=== PATIENT | female | born 1950 | race Caucasian/White ===

== ENCOUNTER 2022-02-22 12:47 | Outpatient (CLI) | payer MEDICARE, BC, SELFPAY ==
--- NOTE | 2022-02-22 13:00 | CRLHL7_ITS ---
For Patients: As a result of the Century Cures Act, medical imaging exams and procedure reports are released immediately into your electronic medical record. You may view this report before your referring provider. If you have questions, please contact your health care provider. DXA BONE MINERAL DENSITY STUDY Current height (in):61 Weight (lb): 205 Menopause age: 44 Ethnicity: White 1. Have you had a previous hip or vertebral fracture? No. 2. Have you had any fractures during your adult life which did not result from significant trauma (e.g., auto accident)? No. 3. Did either of your parents have a hip fracture? No. 4. Do you smoke? No. 5. Have you ever taken Glucocorticoids? No. 6. Do you have rheumatoid arthritis? No. 7. Do you have secondary osteoporosis? No. 8. Do you drink 3 or more alcoholic drinks per day? No. 9. Are you being treated for osteoporosis? No. 10. Have you ever taken any of the following medications: Actonel, Evista, Fosamax, Miacalcin, Reclast, Boniva, Forteo, HRT (i.e. estrogen/hormone therapy), Protelos, Prolia, Vitamin D, Calcium, other ??? please specify. ANSWER: Yes, HRT, vitamin D, Levothyroxine, and Pravastat 11. Do you have any of the following medical conditions: Anorexia or bulimia, asthma or emphysema, end stage renal disease, hyperparathyroidism, any seizure disorders, cancer, inflammatory bowel diseases, hysterectomy, other ??? please specify. ANSWER: Yes, hysterectomy 12. What was your maximum height (inches)? 62.5. 13. Do you perform weight bearing exercise regularly? No 14. Do you regularly consume dairy products? Yes. 15. Do you drink caffeinated beverages? Yes. If female: 16. At what age did your period start? 12 17. Are you premenopausal? No. 18. How many full term pregnancies have you had? 2 19. Have you ever missed your period for more than 6 months in a row (not including or menopause)? No. TECHNIQUE: Bone mineral density study was performed using the [employer]. FINDINGS: The results of the study expressed as bone mineral density (BMD) are as follows: Lumbar spine L1 to L2: BMD: 1.296 g/cm2. T-score: 2.9. Z-score: 5.0 Neck Left: BMD: 0.768 g/cm2. T-score: -0.7. Z-score: 1.2 Right: BMD: 0.888 g/cm2. T-score: 0.4. Z-score: 2.3 Total Left: BMD: 0.973 g/cm2. T-score: 0.3. Z-score: 1.9 Right: BMD: 0.972 g/cm2. T-score: 0.2. Z-score: 1.9 IMPRESSION: Normal bone density. Rosa Rodríguez M.D. Body/Breast Radiologist [email or web address] ESTHER/ranjan woodruff/Dictated by: Rosa Rodírguez MD @ 02/22/2022 1:28:00 PM (Electronically Signed)
== END 2022-02-22 12:48 | disposition home or self-care (01) ==
LOC: RAD 12:48
PROVIDERS: PCP Family Medicine; Visit Provider Family Medicine
DX: Z78.0 Asymptomatic menopausal state (principal)
CPT/HCPCS: 77080

== ENCOUNTER 2023-01-16 08:44 | Outpatient (CLI) | payer MEDICARE, BC, SELFPAY | END 2023-01-16 08:45 | disposition home or self-care (01) | LOC: NFLDREF 16:41 | PROVIDERS: PCP Family Medicine; Referring Provider Family Medicine; Visit Provider Family Medicine | DX: E03.9 Hypothyroidism, unspecified (principal); E78.5 Hyperlipidemia, unspecified; E55.9 Vitamin D deficiency, unspecified | CPT/HCPCS: 80053; 80061; 82306; 84443 ==

== ENCOUNTER 2023-04-01 10:30 | Outpatient (RCR) | payer MEDICARE, BC, SELFPAY ==
--- NOTE | 2023-02-19 07:59 | PT.OPEX ---
PT [place] Outpatient Eval PT [facility] Outpatient Eval Start: 02/18/23 13:35 Freq: Status: Active Protocol: Document 02/18/23 13:36 AMS (Rec: 02/18/23 17:40 AMS [id number]) E-signed By Suzanne Garrett PT Physical Therapy Outpatient Evaluation Insurance Information Recert Due Date 05/14/23 Insurance Name Medicare B,Blue Cross/Blue Shield Medical Diagnosis Chronic lumbar pain Lumbar osteoarthritis Treating Diagnosis Low back pain Muscle weakness Abnormal posture Stiffness bilateral hips Referring MD Amy Sol Subjective Subjective Patient presents to physical therapy (10 minutes late) with primary concern of chronic low back pain. This has been present for years, but recently worsened in October when she started walking again after winter. Localizes pain to midline low back; denies any hip pain, radicular symptoms, or numbness/tingling . Her symptoms prevent her from walking more than one mile. Previously, she was walking 2 miles per day 5-7 days per week, but she stopped due to winter and was never able to get back to it due to back pain. Now, she walks 1 mile 2-3 x/week before her back starts to bother her. Her back does not wake her up at night. Also states she has difficulty with her posture and has increased difficulty with standing up straight. Her anterior thighs feel tight. Functional limitations/ aggravating factors include walking longer than 1 mile and standing longer than 10 minutes. Easing factors include stretching at chiropractor every 2 weeks and massage therapist 1x/month. Pt denies bowel or bladder changes, change in symptoms with coughing or sneezing, unrelenting night pain, history of cancer, or unexplained weight loss. Denies falls in the last year. Goals are walking and standing for longer durations without pain as well as standing up straighter. PMH significant for bilateral knee replacements in 2017 and 2018 , osteoarthritis, and respiratory problems. Pain Comments 9/10 at rest and on average, may sometimes be less (not rated specifically) Date of Last Physician Visit 01/24/23 Current Work Status Retired Preferred Name Gauri Precautions Treatment Precautions/Contraindications Hypothyroidism, hyperlipidemia , bilateral knee replacements Therapy Limitations/Systems Review Not Limited Objective Other/Pertinent Objective Posture Assessment: Mildly flexed forward posture, rounded shoulders, forward head Gait Assessment: Decreased arm swing bilaterally, flexed forward posture, no assistive device, decreased trunk rotation BALANCE Single leg stance: 2 seconds bilaterally FUNCTIONAL MOBILITY Double leg squat: Unable to squat past 90 deg due to B knee pain, pull in low back Step down/SL squat: Not tested LUMBAR ROM Flexion: Full, to ankles, pain -free Extension: 75%, pain-free Right Sidebending: WNL, pain- free Left Sidebending: WNL, pain- free Right rotation: WNL, no pain Left rotation: WNL, no pain REPEATED MOVEMENTS: Lumbar flexion: Mild improvement in symptoms Lumbar extension: No change in symptoms THORACIC ROM Full and pain-free HIP ROM (R/L) Flexion: 100/100 Extension: 10/10 Internal Rotation: 10/10 External Rotation: 45/45 LE MMT Hip flexion: R 5/5 L 5/5 Hip Extension: R 3+/5 L 3+/5 Hip abduction: R 4+/5 L 4+/5 Knee extension: R 5/5 L 5/5 Knee Flexion: R 5/5 L 5/5 Dorsiflexion/heel walk: R 5/5 L 5/5 Abdominal Strength: able to perform curl up in supine, pull in low back JOINT MOBILITY/PALPATION Mild stiffness noted with posterior-anterior testing of lumbar spine at L3-L5, no TTP noted over gluteals or lumbar paraspinals, mild TTP over bilateral lateral hips SPECIAL TESTS -Straight leg raise: - -Quadrant test: - SI/HIP tests -LORETTA: - -FADIR: + for right hip pain -Scour - -Colleen's: - -Anna's: + bilateral -Amilcar: + bilateral TX: Patient was educated on anatomy, physiology as it relates to current condition and HEP with use of handout/ [employer]. Patient verbalizes understanding and agrees with POC/goals -Soreness rules with goal of symptoms returning to baseline within 24 hours and that evening -Slowly increasing walking distance based on above guidelines by small increments as symptoms tolerate Pt educated in the following exercises to improve range of motion, tissue tolerance, and/ or strength with verbal/ tactile cues as necessary: Access Code: [email or web address] URL: [email or web address] Date: 02/18/2023 Prepared by: Suzanne Garrett Exercises - Supine Lower Trunk Rotation - 1 x daily - 7 x weekly - 3 sets - 15 reps - Supine Bridge - 1 x daily - 4 x weekly - 3 sets - 8-10 reps - Supine Quadriceps Stretch with Strap on Table - 1 x daily - 7 x weekly - 3 sets - 30-60 seconds hold Functional Test Performed & Score Modified Oswestry: patient filling out at home Assessment Assessment/Impression Pt is a 73 -year-old female who presents with concerns of chronic low back pain and high severity and moderate irritability. Signs and symptoms are likely indicating / consistent with mechanical low back pain. Pt's intolerance to longer periods of lumbar extension and her age may indicate facet-related symptoms. Denies radiating symptoms or N/T. On exam, patient also demonstrates notable objective findings including limited lumbar extension ROM, impaired balance bilaterally, positive Anna's and Amilcar tests, otherwise normal hip exam, and decreased hip/trunk strength, leading to difficulties with walking for long periods and standing for longer than 10 minutes. Discussed soreness guidelines with graded return to walking longer distances and standing. Patient is appropriate for skilled physical therapy services to address the above deficits. Pt was agreeable with plan of care and goals established. Primary Functional Limitations walking for long periods and standing for longer than 10 minutes Plan of Care Rehabilitation Potential Good Physical Therapy Goals In 2 session: Pt will demonstrate consistent HEP compliance to ensure progress in reaching established goals during course of care. In 8-10 sessions: Pt will be able to walk up to or >2 miles with <2/10 pain. Pt will stand for up to 1 hour with <2/10 pain. Patient will report pain levels < 2/10 with all activity in order to improve functional mobility at home, work, and during functional leisure activities. Coordination/Communication With Referral Source Treatment Plan/Direct Interventions Electrical Stimulation,Joint Mobilization,Manual Therapy, Neuromuscular Re-ed,Self-Care/ Home Management,Therapeutic Activities,Therapeutic Exercises Frequency/Duration 1x/week for 8-10 weeks Patient Will Be Discharged From Therapy Completion of LTG(s), Independent w/HEP, Independently Progressing Evaluation Billing Untimed Code Treatment Minutes 25 Complexity Moderate Certification Information Initial Certification Date 02/18/23 Ending Certification Date 05/14/23 Provider Signature Shows Agreement With POC & Medical Necessity Physician Signature & Date Requested Please Sign/Date Here Physician Comment/Change : Physician NPI Number #
== END 2023-05-13 09:02 | disposition home or self-care (01) ==
PROVIDERS: PCP Family Medicine; Visit Provider Family Medicine
DX: M54.50 Low back pain, unspecified (principal); G89.29 Other chronic pain; M19.09 Primary osteoarthritis, other specified site; E66.9 Obesity, unspecified; M62.81 Muscle weakness (generalized); R29.3 Abnormal posture; M25.652 Stiffness of left hip, not elsewhere classified; M25.651 Stiffness of right hip, not elsewhere classified; Z51.89 Encounter for other specified aftercare
CPT/HCPCS: 97110; 97140; 97162

== ENCOUNTER 2024-02-19 08:28 | Outpatient (CLI) | payer MEDICARE, BC, SELFPAY | END 2024-02-19 08:29 | disposition home or self-care (01) | LOC: NFLDREF 02-21 13:14 | PROVIDERS: PCP Family Medicine; Referring Provider Family Medicine; Visit Provider Family Medicine | DX: E03.9 Hypothyroidism, unspecified (principal); E55.9 Vitamin D deficiency, unspecified; R03.0 Elevated blood-pressure reading, without diagnosis of hypertension; E78.5 Hyperlipidemia, unspecified | CPT/HCPCS: 80053; 80061; 82306; 84443 ==

== ENCOUNTER 2024-05-01 11:15 | Outpatient (RCR) | payer MEDICARE, BC, SELFPAY ==
--- NOTE | 2024-03-02 10:13 | PT.OPE ---
PT [place] Outpatient Eval PT [facility] Outpatient Eval Start: 02/28/24 15:16 Freq: Status: Active Protocol: Document 02/28/24 15:17 JENNIFER (Rec: 02/28/24 15:22 JENNIFER [id number]) E-signed By FRENCH SilvaT, MS Physical Therapy Outpatient Evaluation Insurance Information Recert Due Date 05/28/24 Insurance Name Medicare B Medical Diagnosis Benign paroxysmal vertigo, unspecified ear Treating Diagnosis B CS pain, HAs, decreased B CS flexibility and ROM, cervicogenic dizziness, imbalance, gait dysfunction, and deep CS flexor and periscap weakness Subjective Preferred Name Gauri Wilson Pt is a 74 y.o. female who presents to PT with c/o dizziness and lightheadedness sensations since getting out of bed on 01/28/24. Experienced high levels of room spinning dizziness with rolling to the L, supine<>sit transfers and looking up<>down but these sxs have resolved since earlier this week. Has performed home Maxime maneuver 2-3x per day since seeing Dr. Sol with no dizziness during self treatment this week. Hopes to ensure her BPPV is resolved and learn what causes it and how to prevent future recurrence. Continues to feel lightheaded and off balance with positional changes. Also notes long chronic hx of neck pain and HAs, especially over the past 12 years after her began experiencing dementia sxs. Elevated stress and sadness this year after her earlier this year. Two previous incidents of BPPV with a severe case in 2003. PSH B TKA surgeries. PMH includes chronic LS pain, and CS and LS OA. AGGR factors: quick head movements, turning her head, supine<>sit transfers, looking up<>down, stress, extended sitting and computer use. ALLEV factors: rest, neck stretching, slow movements. Pt hopes to eliminate dizziness and decrease neck pain to improve tolerance and safety with all daily activities. Pain Comments CS 2-7/10 Dizziness none - mild. High levels at worst. Current Work Status Retired Precautions Therapy Limitations/Systems Review Not Limited Objective Functional Test Performed & Score DHI: 30% Assessment Assessment/Impression All BPPV testing negative today with COSTELLO and mild dizziness sxs reproduced with SO release and palpation of SO and upper CS musculature. Significant B upper CS tightness and hypertonicity appears to be leading signs and symptoms consistent with cervicogenic dizziness. High stress levels also contributing to sxs. Pt also displays sensory disorganization with imbalance on compliant surfaces without vision. Excellent response to MT, periscap strengthening and stretching exercises with decreased neck pain, improved CS AROM and dizziness sxs following today?s session. She will benefit greatly from continued skilled PT intervention to address these limitations. Primary Functional Limitations Quick head movements, turning her head, supine<>sit transfers, looking up<>down, stress, extended sitting and computer use Plan of Care Rehabilitation Potential Excellent Physical Therapy Goals Short-term therapy goals to be completed in 4 weeks: 1. Pt will display improved B CS rot AROM >64 deg without neck pain to check blind spots while driving. 2. Pt will report >50% improvement in HAs for >3 consecutive days to improve ability to concentrate with daily activities. Long-term therapy goals to be completed in 10 weeks: 1. Pt will be I and compliant with her HEP for group home sx management 2. Pt will report continued resolution of dizziness with all head positions, household cleaning and daily activities for >6 consecutive days to improve tolerance and safety with daily activities. 3. Pt will display improved Romberg balance on foam surface with eyes closed >5 sec with minimal sway to decrease falls risk. 4. Pt will report >20 point improvement in dizziness handicap inventory questionnaire to significantly improve tolerance to functional activities. Coordination/Communication With Referral Source Treatment Plan/Direct Interventions Canalith Repositioning,Joint Mobilization,Manual Therapy, Neuromuscular Re-ed, Therapeutic Exercises Frequency/Duration 1x per week for as needed for 6-10 visits Patient Will Be Discharged From Therapy Completion of LTG(s),Skills Plateau,Independent w/HEP, Independently Progressing Evaluation Billing Untimed Code Treatment Minutes 28 Complexity Moderate Certification Information Initial Certification Date 02/28/24 Ending Certification Date 05/28/24 Provider Signature Required Yes Provider Signature Shows Agreement With POC & Medical Necessity Physician NPI Number Write NPI# Here Physician Comment/Change : Physician Signature & Date Requested Please Sign/Date Here
== END 2024-08-29 23:59 | disposition home or self-care (01) ==
PROVIDERS: PCP Family Medicine; Visit Provider Family Medicine
DX: H81.10 Benign paroxysmal vertigo, unspecified ear (principal); R26.9 Unspecified abnormalities of gait and mobility; R26.81 Unsteadiness on feet; R29.898 Other symptoms and signs involving the musculoskeletal system; Z51.89 Encounter for other specified aftercare
CPT/HCPCS: 97110; 97140; 97162

== ENCOUNTER 2024-07-21 11:28 | Outpatient (CLI) | payer MEDICARE, BC, SELFPAY | END 2024-07-21 11:29 | disposition home or self-care (01) | PROVIDERS: PCP Family Medicine; Visit Provider Family Medicine | DX: E03.9 Hypothyroidism, unspecified (principal); I10 Essential (primary) hypertension; R53.83 Other fatigue; Z13.21 Encounter for screening for nutritional disorder | CPT/HCPCS: 80053; 82607; 84443 ==

== ENCOUNTER 2024-10-21 14:10 | Emergency (ER) | payer MEDICARE, BC, SELFPAY ==
[2024-10-21] VITALS (18 sets, daily range): BP systolic 179–204; BP diastolic 84–106; PULSE 55–75; RESP 7–30; TEMP 37.3; O2SAT 96–97; BMI 41.8
--- OUTSIDE RECORDS SUMMARY | 2024-10-21 14:22 | XMS_ITS | Clinical Summary ---
Author Organization [facility] Address [address] [place] [id number] Care Team Providers Care Sales Promoter Name Role Phone Amy Sol MD Primary Care Provider + Allergies Active Allergy Reactions Criticality Noted Date Comments Amoxicillin Rash Unknown 11/15/2004 Clindamycin Rash 01/15/2018 Lisinopril Cough 01/15/2018 Penicillins Rash 01/15/2018 Sulfamethoxazole-Trimethoprim Fever 2017 Medications levothyroxine (SYNTHROID) 88 mcg tablet Take 88 mcg by mouth once daily. Active aspirin 81 mg tablet Take 81 mg by mouth once daily with a meal. Active ASCORBATE CALCIUM (VITAMIN C ORAL) Take by mouth. Active VITAMIN B COMPLEX ORAL Take by mouth. Active MULTIVITAMINS WITH FLUORIDE (MULTI-VITAMIN ORAL) Take by mouth. Active pravastatin (PRAVACHOL) 20 mg tablet Take 1 tablet by mouth at bedtime. 0 05/08/2018 Active montelukast (SINGULAIR) 10 mg tablet Take 1 tablet by mouth at bedtime. 0 05/08/2018 Active oxybutynin (DITROPAN) 5 mg tablet Take 5 mg by mouth three times daily. Not taking 0 05/08/2018 Active Active Problems Problem Noted Date Diagnosed Date Personal history of colonic polyps 03/25/2013 Overview (05/24/2023): Colonoscopy 03/2013 normal repeat in 5 years Colonoscopy 05/2023 TA, repeat in 5 years Family History Medical History Relation Name Comments Cancer-colon Maternal Aunt dx age late 70 's Cancer-colon Maternal Uncle dx age late 7 0's Cancer-colon Mother dx age 71 and a gain 91 Cancer-breast Other mat first cous in 40's yrs old Cancer-colon Paternal Uncle dx age late 5 0's Cancer No Family History Cancer-ovarian No Family History Cancer-prostate No Family History Relation Name Status Comments Maternal Aunt Maternal Uncle Mother Other Paternal Uncle Social History Tobacco Use Types Packs/Day Years Used Date Smoking Tobacco: Former Smokeless Tobacco: Never Tobacco Cessation:Counseling Given: Yes Comments:very little as a teen Alcohol Use Standard Drinks/Week Comments Not Asked 0 (1 standard drink = 0.6 oz pur e alcohol) Comments No Sex and Gender Information Value Date Recorded Sex Assigned at Not on file Legal Sex Female 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 BIOLOGIST Gender Identity Not on file Sexual Orientation Not on file Obstetrics History Last Filed Vital Signs Vital Sign Reading Time Taken Comments Blood Pressure 140/70 05/21/2023 9:32 AM ANIMAL BIOLOGIST Pulse 58 05/21/2023 9:32 AM ANIMAL BIOLOGIST Temperature 37.3 C (99.2 F) 09/17/2012 10:37 AM CDT Respiratory Rate 16 05/21/2023 9:32 AM ANIMAL BIOLOGIST Oxygen Saturation 97% 05/21/2023 9:32 AM ANIMAL BIOLOGIST Inhaled Oxygen Concentration - - Weight 81.3 kg (179 lb 3.2 oz) 09/17/2012 10:17 AM CDT Height 157.5 cm (5' 2) 09/17/2012 10:17 AM CDT Body Mass Index 32.78 09/17/2012 10:17 AM CDT Plan of Treatment Health Maintenance Due Date Last Done Comments Tdap 02/09/1960 Depression screening for age 12+ 1961 BMI (ht and wt on same day) for age 18+ 1967 Hepatitis C screening for ag e 18-79 1967 Tetanus booster 1969 Lipids for age 45-75 1994 Pneumococcal series for age 50+ (1 of 1 - PCV) 1999 Zoster (shingles) series for age 50+ (1 of 2) 1999 DEXA/DXA scan for age 65+ 2014 Medicare Wellness for age 65+ 2014 RSV vaccine for adults or (1 - 1-dose 75+ series) 02/09/2024 COVID-19 vaccine series ( season) 2024 08/15/2021, 09/27/2020, 09/06/2020 Influenza Vaccine (Season Ended) 2025 Colonoscopy through age 75 05/21/202805/21, 05/21/2023, 05/09/2018, Additional history exists Procedures Procedure Name Priority Date/Time Associated Diagnosis Comments COLONOSCOPY 05/21/2023 8:36 AM ANIMAL BIOLOGIST from Last 3 Months or Most Recently Relevant to Health Maintenance Results * COLONOSCOPY (05/21/2023 8:36 AM ANIMAL BIOLOGIST) 05/21/2023 8:36 AM ANIMAL BIOLOGIST Narrative Transcriptions Emmanuel Martinez MD - 05/21/2023 9:25 AM CST Patient Name: Anna Mansfield Procedure Date: 05/21/2023 Gender: Female Date of : 1950 Admit Type: Outpatient Procedure: Colonoscopy Proceduralist: Emmanuel Martinez MD , Yun Armstrong RN(Nurse), Belem Lovell (Nurse) Indications/Pre-Op Diagnosis: Screening in patient at increased risk:Family history of 1st-degree relative withcolorectal cancer before age 60 years, Lastcolonoscopy: May 2018 Medications: Fentanyl 150 micrograms IV, Midazolam 4 mgIV, The level of sedation administered wasmoderate Procedure Description: The patient had risks, benefits and alternatives explained to andgave informed consent. The patient had a stable cardiopulmonary status and judged an adequate candidate for conscious sedation. The endoscope [id number]-H190L [id number] was passed through the anus andadvanced to the cecum, identified by appendiceal orifice and ileocecal valve.The colonoscopy was performed without difficulty. The patient toleratedthe procedure well. The quality of the bowel preparation was good. The ileocecal valve, appendiceal orifice, and rectum were photographed. Complications: No immediate complications. Estimated Blood Loss & Specimen: Estimated blood loss: none. Specimen collected - Yes and sent to Laboratory Findings: The perianal and digital rectal examinations were normal. A 3 mm polyp was found in the descending colon. The polyp wassessile. The polyp was removed with a cold snare. Resection and retrieval were complete. There was evidence of a prior end-to-end ileo-colonic anastomosis inthe transverse colon. This was patent and was characterized by healthy appearing mucosa. A benign-appearing, intrinsic moderate stenosis was found in thesigmoid colon. The exam was otherwise without abnormality. Impressions/Post-Op Diagnosis: - One 3 mm polyp in the descending colon, removed with a cold snare. Resected and retrieved. - Patent end-to-end ileo-colonic anastomosis, characterized byhealthy appearing mucosa. - Stricture in the sigmoid colon. - The examination was otherwise normal. Recommendation: - Patient has a contact number available for emergencies. The signsand symptoms of potential delayed complications were discussed with the patient. Return to normal activities tomorrow. Written discharge instructions were provided to the patient. - Resume previous diet. - Continue present medications. - Repeat colonoscopy in 5 years. Moderate Sedation: A time out was performed before the procedure. Moderate (conscious) sedation was administered by the endoscopy nurse and supervised bythe endoscopist. The following parameters were monitored: oxygensaturation, heart rate, blood pressure, EKG, CO2, respiratory rate, adequacy of pulmonary ventilation and reponse to care. Please refer to the patient's medical record flowsheets and nursing notes for moderate sedation details. Total physician intraservice time was 17 minutes. Emmanuel Martinez MD 05/21/2023 9:25:23 AM This report has been signed electronically. Note Initiated On: 05/21/2023 8:36 AM Procedure Code(s): --- Professional --- 36765, Colonoscopy, flexible; with removalof tumor(s), polyp(s), or other lesion(s) bysnare technique Diagnosis Code(s): --- Professional --- Z80.0, Family history of malignant neoplasmof digestive organs D12.4, Benign neoplasm of descending colon Z98.0, Intestinal bypass and anastomosisstatus K56.699, Other intestinal obstruction unspecified as to partial versus complete obstruction CPT copyright 2021 [employer]. All rights reserved. The codes documented in this report are preliminary and upon nurse orthopedic reviewmay be revised to meet current compliance requirements. Scope In: 8:57:10 AM Scope Withdrawal Time 0 hours 8 minutes 20 seconds Scope Out: 9:12:26 AM Emmanuel Martinez MD PROCEDURE ORD Final Res ult from Last 3 Months or Most Recently Relevant to Health Maintenance Insurance MEDICARE PART B HB ONLY MEDICARE PART A HB ONLY BLUE CROSS COUNCIL BLUE MR PB ONLY BLUE CROSS [employer]IL BLUE HB ONLY Care Teams Sales Promoter Relationship Specialty Start Date End Date Amy Sol MD [address] [place] [address] PCP - General Family Practice 09/26/17
--- OUTSIDE RECORDS SUMMARY | 2024-10-21 14:22 | XMS_ITS | Clinical Summary ---
Author Organization [facility] Address [address] [place] [address] Care Team Providers Care Radio Station Audio Engineer Name Role Phone Amy Sol MD Primary Care Provider + Allergies Active Allergy Reactions Criticality Noted Date Comments Amoxicillin 11/15/2004 Clindamycin 01/15/2018 Lisinopril 01/15/2018 Penicillins 01/15/2018 Medications VITAMIN C 500 MG OR TABS 1 TABLET TWICE DAILY 03/31/2003 Active CELEBREX 200 MG OR CAPS 1 Capsule daily 0 11/15/2004 Active ASPIRIN 81 MG OR TABS 1 tab po QD (Once per day) 0 0 11/15/2004 Active oxybutynin (DITROPAN-XL) 5 MG 24 hr tablet Take 5 mg by mouth daily Active Levothyroxine Sodium (LEVOXYL PO) Take 88 mcg by mouth Active vitamin B complex with vitamin C (VITAMIN B COMPLEX) TABS tablet Take 1 tablet by mouth Active VITAMIN D, CHOLECALCIFEROL , PO Take 1,000 Units by mouth daily Active Multiple Vitamins-Minera ls (MULTIVITAMIN ADULT PO) Active aspirin - buffered (ASCRIPTIN) 325 MG TABS tablet Take 325 mg by mouth daily Active PRAVASTATIN SODIUM PO Take 20 mg by mouth daily Active LOSARTAN POTASSIUM PO Take 50 mg by mouth daily Active CEPHALEXIN PO Take 500 mg by mouth 4 tabs before dental work Active Active Problems Problem Noted Date Diagnosed Date Morbid obesity 01/15/2018 Hypothyroidism 03/31/2003 Overview (04/07/2015): Problem list name updated by automated process. Provider to review Generalized osteoarthrosis, unspecified site Family History Medical History Relation Comments Cancer Brother larynx Cancer Father multiple myeloma Cancer - colorectal Mother Diabetes Sister 1 Neurologic Disorder Sister 2 epilepsy and rh arthrjitis Relation Status Comments Brother Father Mother Sister 1 Sister 2 Social History Tobacco Use Types Packs/Day Years Used Date Smoking Tobacco: Never Smokeless Tobacco: Never Alcohol Use Standard Drinks/Week Comments Yes 0 (1 standard drink = 0.6 oz pur e alcohol) occ Comments No Sex and Gender Information Value Date Recorded Sex Assigned at Not on file 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 Gender Identity Not on file Sexual Orientation Not on file Last Filed Vital Signs Vital Sign Reading Time Taken Comments Blood Pressure 128/94 01/15/2018 11:25 AM CDT Pulse 96 01/15/2018 11:25 AM CDT Temperature 36.9 C (98.5 F) 01/15/2018 11:25 AM CDT Respiratory Rate - - Oxygen Saturation 94% 01/15/2018 11:25 AM CDT Inhaled Oxygen Concentration - - Weight 98 kg (216 lb) 01/15/2018 11:25 AM CDT Height 154.9 cm (5' 1) 01/15/2018 11:25 AM CDT Body Mass Index 40.81 01/15/2018 11:25 AM CDT Plan of Treatment Not on file Insurance [facility] [employer] BL[employer] MEDICARE Care Teams Radio Station Audio Engineer Relationship Specialty Start Date End Date Amy Sol MD [address] [address] PCP - General Family Practice 01/15/18
--- NOTE | 2024-10-21 14:27 | ED.GENADULT ---
HPI - General Adult General Chief complaint: Anxiety Stated complaint: anxiety, possible heart issue Time Seen by Provider: 10/21/24 14:17 History of Present Illness HPI narrative: Patient presents to the emergency department complaining of anxiety. Patient states while laying in bed last night she was feeling anxious and felt like her heart was racing. Patient is not currently experiencing any chest pain or shortness of breath. Patient has had increased fatigue for the last 6+ months . When calling to set up clinic appointment she was instructed to present to the emergency department. 74-year-old woman presenting to the emergency department 2 - 3 months of minimal exertional resulting in dyspnea Last few days notices her sock line now. Recent labs are normal. Has been recommended to get better sleep, practice better sleep hygiene. Has been struggling with what was recently diagnosed with anxiety. a year ago. 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 Experiences also frequency and urgency of urination though this is not new Related Data Home Medications ?Medication ?Instructions ?Recorded ?Confirmed aspirin 81 mg tablet,delayed 81 mg PO .Bedtime 01/23/22 10/21/24 release multivitamin 1 tab PO QAM 01/23/22 10/21/24 omega 9-une-mkx-fish oil 60 mg-90 1 cap PO QDAY 01/23/22 10/21/24 mg-500 mg capsule (Fish Oil) polyethylene glycol 3350 17 g PO .Daily as needed PRN 01/23/22 09/07/24 gram/dose oral powder zinc gluconate 30 mg tablet mg PO 01/23/22 09/07/24 ascorbic acid (vitamin C) 500 mg 500 mg PO DAILY 01/30/24 10/21/24 capsule cholecalciferol (vitamin D3) 25 4,000 unit PO DAILY 02/25/24 10/21/24 mcg (1,000 unit) capsule Previous Rx's ?Medication ?Instructions ?Recorded levothyroxine 88 mcg tablet 88 mcg PO DAILY #90 tabs 02/25/24 pravastatin 40 mg tablet 40 mg PO QDAY #90 tabs 02/25/24 losartan 25 mg tablet 12.5 mg (1/2 x 25 mg) PO QDAY #90 09/01/24 tabs albuterol sulfate 90 mcg/actuation 2 puff inhalation Q4-6H PRN 09/07/24 aerosol inhaler shortness of breath or wheezing #6.7 grams Allergies Allergy/AdvReac Type Severity Reaction Status Date / Time clindamycin Allergy Intermediate Rash Verified 10/21/24 14:25 Sulfamethoxazole / Allergy Unknown vasculitis Uncoded 09/07/24 09:40 trimethoprim Review of Systems Status of ROS: Reports: 6 or more systems reviewed and unremarkable except as noted in History and below [facility] Medical History Obesity with body mass index (BMI) of 30.0 to 39.9 ?E66.9 - Obesity, unspecified (ICD-10) Obstructive sleep apnea treated with continuous positive airway pressure (CPAP) ?G47.33 - Obstructive sleep apnea (adult) (pediatric) (ICD-10) ?Z99.89 - Dependence on other enabling machines and devices (ICD-10) Hypothyroidism ?E03.9 - Hypothyroidism, unspecified (ICD-10) Hyperlipidemia ?E78.5 - Hyperlipidemia, unspecified (ICD-10) History of colonic polyps (2017) ?Z86.010 - Personal history of colonic polyps (ICD-10) Benign positional vertigo (09/2021) ?H81.10 - Benign paroxysmal vertigo, unspecified ear (ICD-10) White coat syndrome without diagnosis of hypertension ?R03.0 - Elevated blood-pressure reading, without diagnosis of hypertension (ICD-10) History of bone density study (~02/22/22) ?Z92.89 - Personal history of other medical treatment (ICD-10) Morbid obesity with body mass index (BMI) of 40.0 or higher ?E66.01 - Morbid (severe) obesity due to excess calories (ICD-10) Counseling regarding advanced directives (11/06/11) ?Z71.89 - Other specified counseling (ICD-10) Surgical History History of total knee replacement (2016) ?Z96.659 - Presence of unspecified artificial knee joint (ICD-10) History of total hysterectomy with removal of both tubes and ovaries (2000) ?Z90.710 - Acquired absence of both cervix and uterus (ICD-10) ?Z90.722 - Acquired absence of ovaries, bilateral (ICD-10) ?Z90.79 - Acquired absence of other genital organ(s) (ICD-10) History of cervical cerclage ?Z98.890 - Other specified postprocedural states (ICD-10) History of appendectomy (2003) ?Z90.49 - Acquired absence of other specified parts of digestive tract (ICD-10) Family History Sister Diabetes Mitral valve prolapse Rheumatoid arthritis Seizure Uncle Myocardial infarction, Onset Age: 47 Colon cancer Mother Mitral valve prolapse Colon cancer, Onset Age: 71 Father Multiple myeloma Aunt Colon cancer Uncle Colon cancer Social History Narrative: , 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[employer], 2 adult kids Exercises by walking 3/4M 2x/week Non-smoker Rarely consumes alcohol What is your current living situation?: I presently have a place to live Problems where you live: no known problems In the past 12 months, utilities in danger of being shut off: no In past 12 months, lack of transportation kept you from medical appts, meetings, work, or getting things needed for daily living: no In the past 12 mos, have been you worried that your food would run out before you had money to buy more?: never true In the past 12 mos, the food you bought just didn't last and you didn't have money to buy more?: never true Smoking Status: Never smoker How often does anyone, including family, friends and others, physically hurt you: never How often does anyone, including family, friends and others, insult or talk down to you: rarely How often does anyone, including family, friends and others, threaten you with harm: never How often does anyone, including family, friends and others, scream or curse at you: never Health Related Social Needs: Other personal risk factors, not elsewhere classified (Z91.89) Exam Narrative: Exam Narrative: Pleasantly talkative. NAD. Skin is warm and dry. Trace lower extremity edema consistent with sock line as described. Lungs are clear. Heart in slower rate and regular rhythm. Const: Vital Signs, click to edit/add: Vital Signs - 24 hr 10/21/24 14:14 10/21/24 15:18 10/21/24 15:19 Temperature 99.1 F Pulse Rate 55 L 56 L Pulse Rate [Right Pulse Oximeter] 75 Respiratory Rate 18 30 H Blood Pressure 193/84 H Blood Pressure [Ri ght Upper Arm] 198/89 H Pulse Oximetry 96 96 96 Oxygen Delivery Me thod Room Air 10/21/24 15:19 10/21/24 15:19 10/21/24 15:23 Temperature Pulse Rate 56 L 56 L Pulse Rate [Right Pulse Oximeter] Respiratory Rate 30 H 30 H 11 L Blood Pressure 193/84 H 193/84 H 179/97 H Blood Pressure [Ri ght Upper Arm] Pulse Oximetry 96 96 Oxygen Delivery Me thod 10/21/24 15:28 10/21/24 15:30 10/21/24 15:32 Temperature Pulse Rate Pulse Rate [Right Pulse Oximeter] Respiratory Rate 26 H 7 L Blood Pressure 191/99 H 201/106 H Blood Pressure [Ri ght Upper Arm] Pulse Oximetry Oxygen Delivery Me thod 10/21/24 15:37 10/21/24 15:43 10/21/24 15:45 Temperature Pulse Rate Pulse Rate [Right Pulse Oximeter] Respiratory Rate 13 12 Blood Pressure 199/90 H 189/98 H Blood Pressure [Ri ght Upper Arm] Pulse Oximetry Oxygen Delivery Me thod 10/21/24 15:47 10/21/24 15:52 10/21/24 16:00 Temperature Pulse Rate 59 L 59 L Pulse Rate [Right Pulse Oximeter] Respiratory Rate 12 12 Blood Pressure 190/104 H 192/94 H Blood Pressure [Ri ght Upper Arm] Pulse Oximetry 97 97 Oxygen Delivery Me thod 10/21/24 16:04 10/21/24 16:04 10/21/24 16:05 Temperature Pulse Rate 60 60 64 Pulse Rate [Right Pulse Oximeter] Respiratory Rate 10 L 10 L 22 Blood Pressure 186/93 H 186/93 H Blood Pressure [Ri ght Upper Arm] Pulse Oximetry 97 97 96 Oxygen Delivery Me thod 10/21/24 17:05 10/21/24 17:15 10/21/24 17:33 Temperature Pulse Rate Pulse Rate [Right Pulse Oximeter] Respiratory Rate 16 17 Blood Pressure 204/89 H 193/91 H Blood Pressure [Ri ght Upper Arm] Pulse Oximetry Oxygen Delivery Me thod Documenting provider has reviewed patient's vital signs: yes Course Vital Signs Vital signs: Initial Vital Signs Temperature 99.1 F 10/21/24 14:14 Temperature Source Temporal Artery Scan 10/21/24 14:14 Pulse Rate 75 10/21/24 14:14 Pulse Rhythm Regular 10/21/24 14:14 Pulse Strength 3+ Normal 10/21/24 14:14 Respiratory Rate 18 10/21/24 14:14 Blood Pressure 198/89 H 10/21/24 14:14 Blood Pressure Mean 125 H 10/21/24 14:14 Blood Pressure Position Sitting 10/21/24 14:14 Pulse Oximetry 96 10/21/24 14:14 Oxygen Delivery Method Room Air 10/21/24 14:14 Vital Signs Temperature 99.1 F 10/21/24 14:14 Pulse Rate 75 10/21/24 14:14 Respiratory Rate 18 10/21/24 14:14 Blood Pressure 198/89 H 10/21/24 14:14 Pulse Oximetry 96 10/21/24 14:14 Oxygen Delivery Method Room Air 10/21/24 14:14 Temperature 99.1 F 10/21/24 14:14 Pulse Rate 64 10/21/24 16:05 Respiratory Rate 17 10/21/24 17:33 Blood Pressure 193/91 H 10/21/24 17:33 Pulse Oximetry 96 10/21/24 16:05 Oxygen Delivery Method Room Air 10/21/24 14:14 Medical Decision Making MDM Narrative Medical decision making narrative: Fatigue might well be multifactorial. Might have urinary tract infection. Fatigue probably exacerbated or complicated by poor sleep as she describes it. Anxiety as well can certainly take a toll resulting in fatigue. Will check for desaturation with ambulation to push pulmonary embolus ahead in differential. Does not appear to have pulmonary infection otherwise. Did have recent lab work with normal chemistries and hemoglobin. Scores 0 -- low risk by well's criteria. Two-view chest x-ray independently reviewed by me is without clear infiltrate. Normal cardiac silhouette not suggestive necessarily of heart failure. INDICATION: Dyspnea. TECHNIQUE: Chest radiographs, 2 views. COMPARISON: None. FINDINGS: Cardiovascular/Mediastinum: Normal heart size. Unremarkable. Lungs: No focal consolidation. Linear bandlike opacification of the lungs bilaterally, likely subsegmental atelectasis and/or scarring. Airways: Trachea remains midline. Pleura: No pleural effusions or pneumothorax. Bones: No acute osseous abnormalities. Upper abdomen: Unremarkable. IMPRESSION: No acute cardiopulmonary process. Labs otherwise are reassuring without evidence of blood clot or inflammation or heart failure Maintaining oxygen saturations. Not tachycardic. See patient discharge plan for further discussion Your evaluation here today was reassuring. Continue to stay as active as you are able. Plan things regularly to do as you have been with your family. Practice good sleep hygiene. Continue to use use your CPAP. Would follow-up with your primary care provider to discuss further evaluation for fatigue and exertional shortness of breath. I will call you have radiology has anything more significant to say about your chest x-ray Medical Records Medical records reviewed: Yes I reviewed the patient's medical records Lab Data Lab results reviewed: Yes I reviewed the patient's lab results Labs: Lab Results 10/21/24 Range/Units 15:25 D-Dimer Quant (PE/DVT) 0.57 H (0.00-0.50) ug/ml C-Reactive Protein < 0.5 L (0.5-1.0) mg/dL NT-Pro-B Natriuret Pep 301 pg/mL POC Troponin I 0.00 L (0.01-0.04) ng/ml Discharge Plan Discharge Clinical Impression: Stress, Exertional dyspnea Patient Disposition: Home, Self-Care Condition: Stable Additional Instructions: Your evaluation here today was reassuring. Continue to stay as active as you are able. Plan things regularly to do as you have been with your family. Practice good sleep hygiene. Continue to use use your CPAP. Would follow-up with your primary care provider to discuss further evaluation for fatigue and exertional shortness of breath. I will call you have radiology has anything more significant to say about your chest x-ray Prescriptions: No Action levothyroxine 88 mcg tablet 88 mcg PO DAILY Qty: 90 3RF pravastatin 40 mg tablet 40 mg PO QDAY Qty: 90 3RF losartan 25 mg tablet 12.5 mg PO QDAY Qty: 90 3RF polyethylene glycol 3350 17 gram/dose powder PO .Daily as needed PRN zinc gluconate 30 mg tablet PO aspirin 81 mg tablet,delayed release (DR/EC) 81 mg PO .Bedtime multivitamin Tablet 1 tab PO QAM omega 1-jhl-xro-fish oil [Fish Oil] 60-90-500 mg capsule 1 cap PO QDAY ascorbic acid (vitamin C) 500 mg capsule 500 mg PO DAILY cholecalciferol (vitamin D3) 25 mcg (1,000 unit) capsule 4,000 unit PO DAILY albuterol sulfate 90 mcg/actuation HFA aerosol inhaler 2 puff inhalation Q4-6H PRN (Reason: shortness of breath or wheezing) Qty: 6.7 0RF Follow Up/Referrals: Amy Sol MD [Primary Care Provider] - Stand Alone Forms: EMOSpeech Info Instructions
--- OUTSIDE RECORDS SUMMARY | 2024-10-21 15:46 | XMS_ITS | Clinical Summary ---
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 Gender Identity Not on file Sexual Orientation Not on file Obstetrics History Last Filed Vital Signs Vital Sign Reading Time Taken Comments Blood Pressure 140/70 05/21/2023 9:32 AM SPEECH AND LANGUAGE CLINICIAN Pulse 58 05/21/2023 9:32 AM SPEECH AND LANGUAGE CLINICIAN Temperature 37.3 C (99.2 F) 09/17/2012 10:37 AM CDT Respiratory Rate 16 05/21/2023 9:32 AM SPEECH AND LANGUAGE CLINICIAN Oxygen Saturation 97% 05/21/2023 9:32 AM SPEECH AND LANGUAGE CLINICIAN Inhaled Oxygen Concentration - - Weight 81.3 [...] Associated Diagnosis Comments COLONOSCOPY 05/21/2023 8:36 AM SPEECH AND LANGUAGE CLINICIAN from Last 3 Months or Most Recently Relevant to Health Maintenance Results * COLONOSCOPY (05/21/2023 8:36 AM SPEECH AND LANGUAGE CLINICIAN) 05/21/2023 8:36 AM SPEECH AND LANGUAGE CLINICIAN Narrative Transcriptions Emmanuel Martinez MD - 05/21/2023 [...] candidate for conscious sedation. The endoscope [id number] was passed through the anus andadvanced to [...] 8:36 AM Procedure Code(s): --- Professional --- 09613, Colonoscopy, flexible; with removalof tumor(s), polyp(s), or other lesion(s) bysnare technique Diagnosis Code(s): --- Professional --- Z80.0, Family history of malignant neoplasmof digestive organs D12.4, Benign neoplasm of descending colon Z98.0, Intestinal bypass and anastomosisstatus K56.699, Other intestinal obstruction unspecified as to partial versus complete obstruction CPT copyright 2021 [employer]. All rights reserved. The codes documented in this report are preliminary and upon timber rider reviewmay be revised to meet current compliance requirements. Scope In: 8:57:10 AM Scope Withdrawal Time 0 hours 8 minutes 20 seconds Scope Out: 9:12:26 AM Emmanuel Martinez MD PROCEDURE ORD Final Res ult from Last 3 Months or Most Recently Relevant to Health Maintenance Insurance MEDICARE PART B HB ONLY MEDICARE PART A HB ONLY [place] PB ONLY [place] HB ONLY Care Teams Coper Hand Relationship Specialty Start Date End Date Amy Sol MD [address] [place] [address] PCP - General Family Practice 09/26/17
--- OUTSIDE RECORDS SUMMARY | 2024-10-21 15:46 | XMS_ITS | Clinical Summary ---
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
[2024-10-21 16:00] LABS: D Dimer Quantitative* 0.57 ug/ml (0.00-0.50)
[2024-10-21 16:11] LABS: C Reactive Protein* < 0.5 mg/dL (0.5-1.0); NT Pro B Type NatriureticPept* 301 pg/mL
--- NOTE | 2024-10-21 16:43 | CRLHL7_ITS ---
For Patients: As a result of the Century Cures Act, medical imaging exams and procedure reports are released immediately into your electronic medical record. You may view this report before your referring provider. If you have questions, please contact your health care provider. INDICATION: Dyspnea. TECHNIQUE: Chest radiographs, 2 views. COMPARISON: None. FINDINGS: Cardiovascular/Mediastinum: Normal heart size. Unremarkable. Lungs: No focal consolidation. Linear bandlike opacification of the lungs bilaterally, likely subsegmental atelectasis and/or scarring. Airways: Trachea remains midline. Pleura: No pleural effusions or pneumothorax. Bones: No acute osseous abnormalities. Upper abdomen: Unremarkable. IMPRESSION: No acute cardiopulmonary process. Dictated by Holger Holcomb MD @ 10/21/2024 6:02:33 PM (Electronically Signed)
== END 2024-10-21 18:09 | disposition home or self-care (01) ==
PROVIDERS: Emergency Provider Family Medicine; PCP Family Medicine
DX: F43.9 Reaction to severe stress, unspecified (principal); R06.09 Other forms of dyspnea
CPT/HCPCS: 36415; 71046; 83880; 84484; 85379; 86140; 99284

== ENCOUNTER 2025-02-18 09:50 | Outpatient (CLI) | payer MEDICARE, BC, SELFPAY | END 2025-02-18 09:51 | disposition home or self-care (01) | LOC: NFLDREF 02-23 15:16 | PROVIDERS: PCP Family Medicine; Referring Provider Family Medicine; Visit Provider Family Medicine | DX: E03.9 Hypothyroidism, unspecified (principal); E78.00 Pure hypercholesterolemia, unspecified; E55.9 Vitamin D deficiency, unspecified; R03.0 Elevated blood-pressure reading, without diagnosis of hypertension; M81.0 Age-related osteoporosis without current pathological fracture | CPT/HCPCS: 80053; 80061; 82306; 84443 ==

== ENCOUNTER 2025-04-19 10:33 | Outpatient (CLI) | payer MEDICARE, BC, SELFPAY ==
--- NOTE | 2025-04-19 10:45 | CRLHL7_ITS ---
For Patients: As a result of the Century Cures Act, medical imaging exams and procedure reports are released immediately into your electronic medical record. You may view this report before your referring provider. If you have questions, please contact your health care provider. INDICATION: BILATERAL SCREENING MAMMOGRAM, ASYMPTOMATIC 75 Y/O FEMALE COMPARISON: 04/01/2024, 08/21/2022, 04/03/2021 TECHNIQUE: Digital mammogram in CC and MLO projections including computer-aided detection (CAD) and tomosynthesis. BREAST COMPOSITION: There are scattered areas of fibroglandular density. FINDINGS: No suspicious findings. ASSESSMENT: BI-RADS 1 Negative RECOMMENDATION: Annual screening mammogram. A lay language report of this examination will be provided to the patient. Dictated by: Mar Ma MD @ 04/20/2025 18:02:00 (Electronically Signed)
== END 2025-04-19 10:34 | disposition home or self-care (01) ==
LOC: MAMMO 10:34
PROVIDERS: PCP Family Medicine; Visit Provider Family Medicine
DX: Z12.31 Encounter for screening mammogram for malignant neoplasm of breast (principal)
CPT/HCPCS: 77063; 77067